=== PATIENT | female | born 1960 | race Caucasian/White ===

== ENCOUNTER → 2016-05-01 | Outpatient (CLI) | payer BC | LOC: OD 11:54 | PROVIDERS: ATTEND Physician Assistant | DX: M89.8X1 Other specified disorders of bone, shoulder (principal) ==

== ENCOUNTER 2019-08-22 11:04 | Emergency (ER) | payer BC, OTHER ==
[2019-08-22 13:02] LABS: APPEARANCE,URINE CLOUDY; BILIRUBIN,URINE NEGATIVE (NEGATIVE); COLOR,URINE YELLOW; GLUCOSE, URINE NEGATIVE (NEGATIVE); KETONES,URINE 80 mg/dL (NEGATIVE); LEUKOCYTE ESTERASE,URINE TRACE (NEGATIVE); NITRITE,URINE NEGATIVE (NEGATIVE); PROTEIN,URINE 30 mg/dL (NEGATIVE); URINE SPECIFIC GRAVITY 1.021; UROBILINOGEN,URINE NEGATIVE mg/dL (<2.0)
[2019-08-22 13:47] LABS: ABSOLUTE LYMPHOCYTES (AUTO) 1.7 10^3/uL (0.5-4.7); ABSOLUTE MONOCYTES (AUTO) 0.6 10^3/uL (0.1-1.4); ABSOLUTE NEUT (AUTO) 4.6 10^3/uL (1.7-8.2); BASOPHILS % (AUTO) 0.6 % (0-2); HEMATOCRIT 40.5 % (36.0-47.0); HEMOGLOBIN 14.2 g/dL (12.0-15.5); LYMPHOCYTES % (AUTO) 24.6 % (13-45); MEAN CORPUSCULAR HEMOGLOBIN 30.1 pg (27.0-33.4); MEAN CORPUSCULAR HGB CONC 35.1 g/dL (32.0-36.0); MEAN CORPUSCULAR VOLUME 86 fl (80-97); MONOCYTES % (AUTO) 8.5 % (3-13); PLATELET COUNT 251 10^3/uL (150-450); RED BLOOD COUNT 4.73 10^6/uL (3.72-5.28); RED CELL DISTRIBUTION WIDTH 13.1 % (11.5-14.0); SEGMENTED NEUTROPHILS % (AUTO) 66.3 % (42-78); TOTAL CELLS COUNTED % (AUTO) 100 %
[2019-08-22] MEDS ORDERED: METOCLOPRAMIDE HCL INJ/PF 10 MG/2 ML SDV IV ONE (13:59)
[2019-08-22] MEDS ORDERED: RINGERS SOLUTION,LACTATED 1,000 ML IV ONE (13:59)
[2019-08-22] MEDS ORDERED: CEFTRIAXONE 1 GM/D5W RTU 1 GM/50 ML RTUPB IV ONE (14:00)
--- NOTE | 2019-08-22 14:01 | ER Document Report ---
ED GI/ - General Chief Complaint: Nausea Stated Complaint: NAUSEA Time Seen by Provider: 08/22/19 13:17 Primary Care Provider: LEONEL PARKS PA-C [Primary Care Provider] - Follow up in 3-5 days (Call as soon as possible for an outpatient follow-up appointment.) Mode of Arrival: Ambulatory Information source: Patient Notes: 59-year-old female past medical history significant for seasonal allergies, thyroid disease, depression presents emergency room complaining of persistent nausea for the past 2 weeks. States she was seen at [facility] on Wednesday was given IV fluids and Zofran is not helping with her symptoms. She had a negative COVID 19 test 10 days ago. She denies any recent travel. No COVID- 19 exposure. has been unable to follow-up with her primary care physician. States due to the vomiting she has not been taking her medications as prescribed. Denies fevers. Denies urinary symptoms. Denies abdominal pain. Denies chest pain, denies shortness of breath. Other concern is that she was bit by a tick on the right side of her face about 6 weeks ago has not seen her primary care or any other providers concerning the tick bite. She denies any other rashes. No history of Lyme disease. States her tetanus is up-to-date. TRAVEL OUTSIDE OF THE [place] IN LAST 30 DAYS: No Past Medical History - General Information source: Patient - Social History Smoking Status: Never Smoker Chew tobacco use (# tins/day): No Frequency of alcohol use: None Drug Abuse: None Family History: Reviewed & Not Pertinent Patient has homicidal ideation: No Psychiatric Medical History: Reports: Hx Depression Review of Systems - Review of Systems Constitutional: No symptoms reported Cardiovascular: No symptoms reported Respiratory: No symptoms reported Gastrointestinal: Nausea, Vomiting. denies: Diarrhea, Constipation Skin: Other - Right cheek erythema. denies: Rash Neurological/Psychological: No symptoms reported -: Yes All other systems reviewed and negative Physical Exam - Vital signs Vitals: Temp 97.4 F 08/22/19 11:05 - Notes Notes: VITAL SIGNS: Within normal limits. GENERAL: Mild acute distress, non-toxic appearance. HEAD: Normal with no signs of head trauma. EYES: PERRLA, EOMI, conjunctiva normal, no discharge. EARS: Hearing grossly intact. NOSE: Normal. THROAT: Oropharynx is normal. NECK: Normal range of motion, no tenderness, supple, no lymphadenopathy, No adenopathy, no JVD. CHEST: Clear breath sounds bilaterally. No wheezes, rales, or rhonchi. CARDIAC: Regular rate and rhythm. S1 and S2, without murmurs, gallops, or rubs. VASCULAR: No Edema. Peripheral pulses normal and equal in all extremities. ABDOMEN: Normal and soft with no tenderness, no masses or pulsatile masses. GASTROINTESTINAL: Bowel sounds normal GENITOURINARY: Normal, No tenderness LYMPATHTIC: No lymphadenopathy noted. MUSCULOSKELETAL: Good range of motion of all major joints. Extremities without clubbing, cyanosis or edema. NEUROLOGICAL: Alert and oriented x 3. No focal sensory or strength deficits. Speech normal. Follows commands appropriately. PSYCHIATRIC: Normal Affect, judgement and mood. SKIN: Normal appearance with no rashes or lesions. Right cheek with no erythema, lesions, puncture wounds or bites noted. Course - Re-evaluation Re-evalutation: 08/22/19 16:38 Patient is resting comfortably afebrile, nontoxic-appearing, able to tolerate p.o. fluids. Reviewed all test results with patient. Aware of her abnormal TSH. She was counseled on the importance of following up with her primary care physician for management of her hypothyroidism take antibiotics as prescribed. Also discussed following up with her primary care physician for possible Lyme testing patient was given strict return to the emergency room guidelines. Return for any new or worsening symptoms. All questions were answered. Patient verbalized understanding and agrees with plan of care. - Vital Signs Vital signs: Temp Pulse Resp BP Pulse Ox 98.6 F 61 20 116/61 96 08/22/19 17:15 08/22/19 17:15 08/22/19 17:15 08/22/19 17:15 08/22/19 17:15 - Laboratory Result Diagrams: 08/22/19 13:32 08/22/19 13:32 Laboratory results interpreted by me: 08/22/19 08/22/19 08/22/19 12:45 13:32 13:32 Sodium 135.7 L TSH 0.21 L Urine Protein 30 H Urine Ketones 80 H Urine Blood SMALL H Ur Leukocyte Esterase TRACE H Discharge - Discharge Clinical Impression: Abnormal TSH Nausea & vomiting Qualifiers: Vomiting type: unspecified Vomiting Intractability: non-intractable Qualified Code(s): R11.2 - Nausea with vomiting, unspecified UTI (urinary tract infection) Qualifiers: Urinary tract infection type: site unspecified Hematuria presence: without hematuria Qualified Code(s): N39.0 - Urinary tract infection, site not specified Condition: Stable Disposition: HOME, SELF-CARE Instructions: Antinausea Medication ([facility]), Thyroid Hormone ([facility]), Urinary Tract Infection, Child ([facility]), Vomiting ([facility]) Additional Instructions: You have been seen in the Emergency Department (ED) today for nausea and vomiting. Your work up today has not shown a clear cause for your symptoms. You have been prescribed Reglan ; please use as prescribed as needed for your nausea. Follow up with your doctor as soon as possible regarding today's emergent visit and your symptoms of nausea. Return to the Emergency Department (ED) if you develop abdominal pain, bloody vomiting, bloody diarrhea, if you are unable to tolerate fluids due to vomiting, or if you develop other symptoms that concern you. Your urine shows findings consistent with a urinary tract infection. Please take all the antibiotics as directed even if your symptoms have improved. Please follow-up with your primary care physician as needed. Return to emergency room if you develop fever >101F, persistent vomiting, become lethargic, have severe pain in your sides, or any other symptoms that are concerning to you. Your TSH level is low you need to see her primary care physician as soon as possible for adjustment of your thyroid medication. Prescriptions: Cephalexin Monohydrate [Keflex 500 mg Capsule] 500 mg PO BID 7 Days #14 capsule Metoclopramide HCl [Reglan 10 mg Tablet] 10 mg PO ACHS #12 tablet Referrals: LEONEL PARKS PA-C [Primary Care Provider] - Follow up in 3-5 days (Call as soon as possible for an outpatient follow-up appointment.)
[2019-08-22 14:10] LABS: ALBUMIN 4.3 g/dL (3.5-5.0); ALKALINE PHOSPHATASE 44 U/L (38-126); ANION GAP 10 (5-19); ASPARTATE AMINO TRANSFERASE 23 U/L (14-36); BILIRUBIN,DIRECT 0.1 mg/dL (0.0-0.4); BILIRUBIN,TOTAL 0.9 mg/dL (0.2-1.3); BLOOD UREA NITROGEN 18 mg/dL (7-20); CALCIUM 9.1 mg/dL (8.4-10.2); CARBON DIOXIDE 27 mmol/L (22-30); CHLORIDE 99 mmol/L (98-107); GLUCOSE 83 mg/dL (75-110); POTASSIUM 3.7 mmol/L (3.6-5.0); TOTAL PROTEIN 7.2 g/dL (6.3-8.2)
[2019-08-22] MEDS ORDERED: DIPHENHYDRAMINE HCL 50 MG/ML VIAL IV ONE (14:45)
[2019-08-22 17:16] VITALS: BP 116/61
== END 2019-08-22 17:16 | disposition home or self-care (01) ==
LOC: ER 11:04
DX: N39.0 Urinary tract infection, site not specified (principal); R11.2 Nausea with vomiting, unspecified; E03.9 Hypothyroidism, unspecified; Z91.14 Patient's other noncompliance with medication regimen
CPT/HCPCS: 99283; 96375; 96365; 36415; 84443; 85025; 80053; 81001; J1200; J2765; J7120; J0696